=== PATIENT | male | born 1935 | race Native Hawaiian/Other Pacific Islander ===

== ENCOUNTER 2017-10-07 00:42 | Emergency (ER) | payer MEDICARE ==
[~2017-10-07] VITALS: Ht 167.6 cm; Wt 102.5 kg
[~2017-10-07 00:42] MED LIST: AMARYL2 MG PO; ARIMIDEX1 MG PO; AZITHROMYCIN 2250 MG PO; BACTRIM DS TAB1 EACH PO; COLCRYS0.6 MG PO; DUONEB 2.5-0.5 M3 ML INH; GLUCOTROL5 MG PO; HYDROCODONE-AP1 EAC6 PO; LOSARTAN-HCTZ1 EAC1 PO; MEDROL DOSPAK21 TA1 PO; MEDROLDOSEPACK PO; METFORMIN HCL500 MG PO; NORCO 5-325 TA1 EACH PO; OXYCODONE HCL 55 MG PO; PREDNISONE 10 M10 MG PO; PROAIR HFA8.5 GM INH; TESSALON PERLE100 MG PO; VALACYCLOVIR1000 MG PO; ZPAK PO; ZYTIGA250 MG PO
[2017-10-07] MEDS ORDERED: MS CONTIN15 MG (01:03)
[2017-10-07] MEDS ORDERED: MORPHINE (01:04)
[2017-10-07] MEDS ORDERED: CALCIUM CITRAT250 MG (01:06)
[2017-10-07 01:12] LABS: URINE BILIRUBIN NEGATIVE (Negative); URINE BLOOD TRACE (Negative); URINE CLARITY CLEAR; URINE COLOR YELLOW; URINE GLUCOSE-RANDOM NEGATIVE (Negative); URINE KETONES NEGATIVE (Negative); URINE LEUKOCYTES-REFLEX NEGATIVE (Negative); URINE NITRITE-REFLEX NEGATIVE (Negative); URINE PROTEIN NEGATIVE (Negative); URINE UROBILINOGEN 0.2 E.U./dl (0.2-1.0)
[2017-10-07 01:25] LABS: ABSOLUTE EOSINOPHILS 0.1 thou/uL (0.0-0.7); ABSOLUTE MONOCYTES 0.8 thou/uL (0.0-1.2); ABSOLUTE NEUTROPHILS 7.6 thou/uL (1.6-8.1); BASOPHILS 0.2 %; EOSINOPHILS 1.1 %; HEMATOCRIT 30.4 % (42.0-52.0); HEMOGLOBIN 10.1 gm/dL (14.0-18.0); LYMPHOCYTES 10.5 %; MCH 28.9 pg (26.0-34.0); MCHC 33.1 g/dL (28.0-37.0); MCV 87.2 fL (80.0-100.0); MONOCYTES 8.7 %; MPV 7.6 fl. (7.2-11.1); NUCLEATED RBCS 0 /100WBC; PLATELET COUNT* 150 thou/uL (150-400); POLYS 79.5 %; RBC 3.49 mil/uL (4.50-6.00); RDW-CV 14.7 % (10.5-14.5); WBC 9.6 thou/uL (4.0-11.0)
[2017-10-07 01:29] LABS: PROTIME 10.1 Seconds (9.20-11.50)
[2017-10-07 01:31] LABS: ANION GAP 9 mmol/L (7-16); BUN 19 mg/dL (7-18); CALCIUM 9.2 mg/dL (8.5-10.1); CHLORIDE 96 mmol/L (98-107); CO2 26 mmol/L (21-32); CREATININE 1.2 mg/dL (0.6-1.3); GLUCOSE 133 mg/dL (70-99); POTASSIUM 3.9 mmol/L (3.5-5.1); SODIUM 131 mmol/L (136-145)
[2017-10-07 01:44] LABS: ALBUMIN 3.3 g/dL (3.4-5.0); ALKALINE PHOSPHATASE 202 U/L (46-116); LIPASE 309 U/L (73-393); NT-PRO BRAIN NAT PEPTIDE 162 pg/mL (<300); SGOT 18 U/L (15-37); SGPT 11 U/L (30-65); TOTAL BILIRUBIN 0.5 mg/dL (<0.1-1.0); TOTAL PROTEIN 7.4 g/dL (6.4-8.2); TROPONIN-I LEVEL <0.06 ng/mL (<0.06)
[2017-10-07 02:20] VITALS: BP 143/78
== END 2017-10-07 02:23 | disposition home or self-care (01) ==
LOC: M.ERS 00:42
PROVIDERS: Family Medicine
DX: R53.1 Weakness (principal); R09.89 Other specified symptoms and signs involving the circulatory and respiratory systems; R05 Cough; E11.9 Type 2 diabetes mellitus without complications; I50.9 Heart failure, unspecified; Z85.46 Personal history of malignant neoplasm of prostate